=== PATIENT | female | born 1965 | race Caucasian/White ===

== ENCOUNTER 2021-11-20 08:45 | Outpatient (RCR) | payer OTHER | END 2021-11-23 | disposition home or self-care (01) | LOC: WSOT | DX: S66.822D Laceration of other specified muscles, fascia and tendons at wrist and hand level, left hand, subsequent encounter (principal); S61.402D Unspecified open wound of left hand, subsequent encounter; X58.XXXD Exposure to other specified factors, subsequent encounter ==

== ENCOUNTER 2021-12-20 15:45 | Outpatient (RCR) | payer OTHER | END 2021-12-24 | disposition home or self-care (01) | LOC: WSOT | DX: S66.822D Laceration of other specified muscles, fascia and tendons at wrist and hand level, left hand, subsequent encounter (principal); X58.XXXD Exposure to other specified factors, subsequent encounter ==

== ENCOUNTER 2022-01-02 13:16 | Outpatient (RCR) | payer OTHER | END 2022-01-24 | LOC: WSOT | DX: S66.822D Laceration of other specified muscles, fascia and tendons at wrist and hand level, left hand, subsequent encounter (principal); S61.402D Unspecified open wound of left hand, subsequent encounter; X58.XXXD Exposure to other specified factors, subsequent encounter ==